=== PATIENT | male | born 1990 | race African-American/Black ===

== ENCOUNTER 2023-06-03 12:39 | Emergency (ER) | payer OTHER, SELFPAY ==
[2023-06-03 12:47] VITALS: BP 190/117; PULSE 75; RESP 14; TEMP 36.4; O2SAT 100; BMI 25.0
[2023-06-03 13:13] LABS: Add Manual Diff / Slide Review NO; Basophils Absolute Auto 100 /uL (0-100); Basophils Percent Auto 1.3 % (0-2); Eosinophils Absolute Auto 700 /uL (0-450); Eosinophils Percent Auto 9.1 % (2-4); Hematocrit 43.1 % (41-53); Hemoglobin 14.3 g/dL (13.5-17.5); Lymphocytes Absolute Auto 2000 /uL (1100-4500); Lymphocytes Percent Auto 27.8 % (25-40); Mean Corpuscular HGB Conc 33.2 % (30-36); Mean Corpuscular Hemoglobin 31.1 PG (26-34); Mean Corpuscular Volume 93.8 fL (80-100); Monocytes Absolute Auto 700 /uL (0-900); Monocytes Percent Auto 9.3 % (3-14); Neutrophils Absolute Auto 3900 /uL (1500-7000); Neutrophils Percent Auto 52.5 % (50-75); Platelet Count 247 X10^3/uL (150-400); Red Cell Distribution Width 13.2 % (11.6-14.8); White Blood Cell Count 7.4 X10^3/uL (4.5-11.0)
[2023-06-03] MEDS: PANTOPRAZOLE 40 MG VIAL 80 MG IV (13:17)
[2023-06-03 13:25] LABS: Alanine Aminotransferase 45 IU/L (<50); Albumin 4.4 g/dL (3.5-5.0); Albumin Globulin Ratio 1.3 (1.0-2.8); Alkaline Phosphatase 59 U/L (38-126); Aspartate Aminotransferase 55 IU/L (17-59); BUN Creatinine Ratio 16.7 (6-22); Bilirubin Total 1.1 mg/dL (0.2-1.3); Blood Urea Nitrogen 15 mg/dL (9-20); Calcium 9.3 mg/dL (8.4-10.2); Carbon Dioxide 25 mmol/L (22-32); Chloride 105 mmol/L (98-107); Estimated Glomerular Filt Rate > 60 mL/min (>60); Globulin 3.5 g/dL (1.7-4.1); Glucose 108 mg/dL (70-100); HEMOLYSIS < 15 (0-50); Lipase 109 U/L (23-300); Potassium 3.9 mmol/L (3.4-5.1); Sodium 137 mmol/L (137-145); Total Protein 7.9 g/dL (6.3-8.2)
[2023-06-03 14:46] LABS: Bacteria Urine Occasional (0-1); RBC Urine 0-1/HPF (0-5/HPF); Squamous Epithelial Cell Urine 1-5 /HPF (0-5/HPF); Urine Volume 10mL (spun); WBC Urine 0-1/HPF (0-5/HPF)
[2023-06-03 14:47] LABS: Culture Indicated Urine Cult Not Indicated; Mucus Urine 2+ (Negative)
[2023-06-03] MEDS: SODIUM CHLORIDE 0.9% 1,000 ML 1000 ML IV (15:21)
--- NOTE | 2023-06-03 15:39 | ED.ABDPAIN ---
HPI - Abdominal Pain General Chief Complaint: Abdominal Pain Stated Complaint: abd pain, hx gastric ulcers GI bleeds Time Seen by Provider: 06/03/23 14:39 Mode of arrival: Ambulatory History of Present Illness HPI narrative: 33-year-old male presents for 3-4 days of midepigastric and left upper quadrant burning pain. Patient states that 3-4 years ago he was diagnosed with a bleeding gastric ulcer that caused him to lose blood. This was done in [place] when he was stationed at the [email or web address]. Patient states he is concerned that he may have developed another ulcer. He states that the last ulcer was attributed to stress and no definitive cause was found. Related Data Previous Rx's Medication Instructions Recorded famotidine 40 mg tablet (Pepcid) 40 mg PO BID #30 tabs 06/03/23 omeprazole 40 mg capsule,delayed 40 mg PO BID #30 caps 06/03/23 release sucralfate 1 gram tablet (Carafate) 1 g PO BID #60 tabs 06/03/23 Allergies Allergy/AdvReac Type Severity Reaction Status Date / Time No Known Drug Allergies Allergy Verified 06/03/23 13:12 Review of Systems Review of Systems Narrative: Negative except as noted above Patient History Substance Use Type: does not use Exam Initial Vital Signs Initial Vital Signs: Vital Signs Temperature 97.6 F 06/03/23 12:47 Pulse Rate 75 06/03/23 12:47 Respiratory Rate 14 06/03/23 12:47 Blood Pressure 190/117 H 06/03/23 12:47 Pulse Oximetry 100 06/03/23 12:47 Oxygen Delivery Method Room Air 06/03/23 12:47 Const: Awake, alert, no acute distress, nontoxic appearing Cardiac: regular rate, regular rhythm RESP: unlabored, clear bilaterally, no wheezing GI: Soft, midepigastric tenderness to deep palpation without rebound or guarding MSK: Atraumatic, full range of motion, pulses equal Skin: Warm, Dry, intact, no rashes Neuro: AO x3, CN II-XII grossly intact, moves all extremities Course Orders Ordered: Discontinued Medications Al Hydrox/Mg Hydrox/Simethicone (Mag Hydrox/Alum/Simeth 30 Ml Udc) 30 ml PO NOW ONE Stop: 06/03/23 15:40 Last Admin: 06/03/23 15:56 Dose: 30 ml Documented By: ZAIRA Sodium Chloride (Normal Saline 0.9%) 1,000 mls @ 1,000 mls/hr IV BOLUS ONE Stop: 06/03/23 15:36 Last Infusion: 06/03/23 16:14 Dose: Infused Documented By: Admin: 06/03/23 15:21 Dose: 1,000 mls/hr Documented By: JUDY Lidocaine HCl (Lidocaine Viscous 2% 15 Ml Solution) 15 ml PO NOW ONE Stop: 06/03/23 15:40 Last Admin: 06/03/23 15:56 Dose: 15 ml Documented By: ZAIRA Ondansetron HCl (Ondansetron 4 Mg/2 Ml Inj) 4 mg IV NOW PRN PRN Reason: Nausea And Vomiting Pantoprazole Sodium (Pantoprazole 40 Mg Vial) 80 mg IV NOW ONE Stop: 06/03/23 13:12 Last Admin: 06/03/23 13:17 Dose: 80 mg Documented By: ZAIRA Sucralfate (Sucralfate 1 Gm/10 Ml Oral Susp) 1 gm PO NOW ONE Stop: 06/03/23 15:41 Last Admin: 06/03/23 15:56 Dose: 1 gm Documented By: ZAIRA Vital Signs Vital signs: Vital Signs - 8 hr 06/03/23 12:47 Temperature 97.6 F Pulse Rate 75 Respiratory Rate 14 Blood Pressure 190/117 H Pulse Oximetry 100 Oxygen Delivery Method Room Air MDM - Abdominal Pain Differential Diagnosis Differential diagnosis: Likely abdominal pain, acute appendicitis, calculus of kidney and gastroenteritis Lab Data 06/03/23 13:01 06/03/23 13:01 Labs: Lab Results 06/03/23 06/03/23 Range/Units 13:01 14:15 WBC 7.4 (4.5-11.0) X10^3/uL RBC 4.60 (4.5-5.9) X10^6/uL Hgb 14.3 (13.5-17.5) g/dL Hct 43.1 (41-53) % MCV 93.8 (80-100) fL MCH 31.1 (26-34) PG MCHC 33.2 (30-36) % RDW 13.2 (11.6-14.8) % Plt Count 247 (150-400) X10^3/uL Neut % (Auto) 52.5 (50-75) % Lymph % (Auto) 27.8 (25-40) % Bibb % (Auto) 9.3 (3-14) % Eos % (Auto) 9.1 H (2-4) % Baso % (Auto) 1.3 (0-2) % Neut # (Auto) 3900 (0530-0095) /uL Lymph # (Auto) 2000 (6757-8382) /uL Bibb # (Auto) 700 (0-900) /uL Eos # (Auto) 700 H (0-450) /uL Baso # (Auto) 100 (0-100) /uL Sodium 137 (137-145) mmol/L Potassium 3.9 (3.4-5.1) mmol/L Chloride 105 (98-107) mmol/L Carbon Dioxide 25 (22-32) mmol/L BUN 15 (9-20) mg/dL Creatinine 0.90 (0.66-1.25) mg/dL Estimated GFR > 60 (>60) mL/min BUN/Creatinine Ratio 16.7 (6-22) Glucose 108 H (70-100) mg/dL Calcium 9.3 (8.4-10.2) mg/dL Total Bilirubin 1.1 (0.2-1.3) mg/dL AST 55 (17-59) IU/L ALT 45 (<50) IU/L Alkaline Phosphatase 59 (38-126) U/L Total Protein 7.9 (6.3-8.2) g/dL Albumin 4.4 (3.5-5.0) g/dL Globulin 3.5 (1.7-4.1) g/dL Albumin/Globulin Ratio 1.3 (1.0-2.8) Lipase 109 (23-300) U/L Urine RBC 0-1/hpf (0-5/HPF) Urine WBC 0-1/hpf (0-5/HPF) Ur Squamous Epith Cells 1-5 /hpf (0-5/HPF) Urine Bacteria Occasional (0-1) (None) Urine Mucus 2+ H (Negative) Ur Culture Indicated? Cult not indicated Vol Urine Centrifuged 10ml (spun) Point of care testing: Urine Dip Bedside Urine Glucose Negative Bedside Urine Bilirubin - Negative Bedside Urine Ketone +/- 5 Urine Specific [place] 1.030 Bedside Urine Occult Blood +/- Bedside Urine pH 5 Bedside Urine Protein +/- 15 Bedside Urine Urobilinogen - Negative Bedside Urine Nitrite - Negative Bedside Urine Leukocytes - Negative Esterase MDM Narrative Medical decision making narrative: Well-appearing patient with midepigastric burning. Concern is that he may have another bleeding gastric ulcer. Abdomen is soft, minimal tenderness to deep palpation in the upper quadrants without focality. Patient given GI cocktail. Laboratory work shows a hemoglobin of 14.3. Low suspicion for bleeding ulcer at this time. Little utility in obtaining advanced imaging such as CT given benign exam. Patient advised of all lab results, recommended close follow up with GI and/or General surgery for endoscopy. Local referral provided since patient's previous program director/music director was in [place]. High-dose antacid started and sent to pharmacy of choice. Discharge Plan Departure Patient Disposition: Home Clinical Impression: Abdominal pain, History of gastric ulcer Instructions: DI for Peptic Ulcer Prescriptions: New sucralfate [Carafate] 1 gram tablet 1 g PO BID Qty: 60 0RF omeprazole 40 mg capsule,delayed release(DR/EC) 40 mg PO BID Qty: 30 0RF famotidine [Pepcid] 40 mg tablet 40 mg PO BID Qty: 30 0RF Referrals: [facility] [Primary Care Provider] - Stand Alone Forms: Patient Portal/API
[2023-06-03] MEDS: SUCRALFATE 1 GM/10 ML ORAL SUSP PO (15:56)
[2023-06-03] MEDS: LIDOCAINE VISCOUS 2% 15 ML SOLUTION PO (15:56)
[2023-06-03] MEDS: MAG HYDROX/ALUM/SIMETH 30 ML UDC PO (15:56)
[2023-06-03 16:14] VITALS: BP 159/105; PULSE 70; RESP 14; O2SAT 100
== END 2023-06-03 16:17 | disposition home or self-care (01) ==
PROVIDERS: Emergency Provider Emergency Medicine
DX: R10.9 Unspecified abdominal pain (principal)
CPT/HCPCS: 36415; 80053; 81003; 81015; 83690; 85025; 96374; 99284; C9113